=== PATIENT | female | born 1995 | race Two or more races ===

== ENCOUNTER 2020-12-15 13:40 | Outpatient (REF) | payer OTHER, SELFPAY ==
[2020-12-15 15:07] LABS: Influenza A PCR NEGATIVE (Negative); Influenza B PCR NEGATIVE (Negative); Resp Syncy Virus RNA Qual PCR NEGATIVE (Negative); SARS COV2 PCR INHOUSE NEGATIVE (Negative)
== END 2020-12-15 13:41 | disposition home or self-care (01) ==
LOC: HO.LNP 13:40
PROVIDERS: Visit Provider Family Medicine
DX: Z20.822 Contact with and (suspected) exposure to COVID-19 (principal)
CPT/HCPCS: 0241U

== ENCOUNTER 2021-01-11 07:32 | Outpatient (REF) | payer OTHER, SELFPAY ==
[2021-01-11 11:34] LABS: MANUAL DIFF FLAG NO
[2021-01-11 11:49] LABS: Basophils Percent Auto 0.6 % (0-2); Eosinophils Absolute Auto 0.1 X10*3/uL (0.0-0.4); Eosinophils Percent Auto 2.1 % (0-4); Hematocrit 39.6 % (37-47); Hemoglobin 13.5 g/dl (12.0-16.0); Imm Gran Abs Auto 0.01 X10*3/uL (0.00-0.03); Imm Gran Pct Auto 0.2 % (0.0-0.4); Lymphocytes Percent Auto 41.9 % (20-40); Mean Corpuscular HGB Conc 34.1 g/dl (31.0-35.0); Mean Corpuscular Hemoglobin 30.5 pg (27.0-33.0); Mean Corpuscular Volume 89.4 fL (80-98); Mean Platelet Volume 10.6 fL (9.4-12.3); Monocytes Absolute Auto 0.4 X10*3/uL (0.1-1.2); Monocytes Percent Auto 7.4 % (2-11); Neutrophils Absolute Auto 2.3 X10*3/uL (2.0-8.3); Neutrophils Percent Auto 47.8 % (45-73); Platelet Count 205 X10*3/uL (160-400); Red Blood Count 4.43 X10*6/uL (4.20-5.50); Red Cell Distribution Width 11.9 % (11.0-16.0); White Blood Count 4.9 X10*3/uL (4.8-10.8)
[2021-01-11 12:02] LABS: Alanine Aminotransferase 14 U/L (0-31); Albumin Level 4.2 g/dL (3.5-5.0); Alkaline Phosphatase 52 U/L (39-117); Anion Gap 11 (12-20); Aspartate Amino Transferase 16 U/L (5-31); Bilirubin Total 0.5 mg/dL (0.0-1.0); Blood Urea Nitrogen 9 mg/dL (9-16); Calcium 9.3 mg/dL (8.4-10.2); Carbon Dioxide 27 mmol/L (22-29); Chloride 108 mmol/L (96-108); Cholesterol 121 mg/dL; Estimated Glomerular Filt Rate > 60; Glucose Fasting 101 mg/dL (60-99); HDL Cholesterol 41 mg/dL; Iron 108 mcg/dL (30-160); LDL Cholesterol Calculated 64 mg/dl; Percent Iron Saturation 31 % (15-50); Potassium 4.7 mmol/L (3.3-5.1); Sodium 141 mmol/L (135-145); Total Iron Binding Capacity 344 mcg/dL (228-428); Total Protein 6.9 g/dL (6.5-8.0); Triglycerides 82 mg/dL; Unsaturated Iron Binding 236 ug/dL
[2021-01-11 12:24] LABS: TSH reflex Free T4 0.91 uIU/mL (0.32-4.0)
[2021-01-11 12:33] LABS: Erythrocyte Sedimentation Rate 2 MM/HR (0-20)
[2021-01-13 13:32] LABS: CRP High Sensitivity 0.5 mg/L
== END 2021-01-11 07:33 | disposition home or self-care (01) ==
LOC: HO.WFDLDS 07:32
PROVIDERS: Visit Provider Family Medicine
DX: Z00.00 Encounter for general adult medical examination without abnormal findings (principal); R06.02 Shortness of breath; R25.2 Cramp and spasm; M25.569 Pain in unspecified knee
CPT/HCPCS: 36415; 80053; 80061; 83540; 84443; 85025; 85652; 86141

== ENCOUNTER 2021-02-07 14:55 | Outpatient (REF) | payer OTHER, SELFPAY ==
[2021-02-09 09:04] LABS: BV Int Neg Control Negative (Negative); BV Int Pos Control Positive (Positive)
[2021-02-09 11:14] LABS: CT PCR NOT DETECTED (Not Detect.); NG PCR NOT DETECTED (Not Detect.)
== END 2021-02-07 14:56 | disposition home or self-care (01) ==
LOC: HO.LAB 14:55
PROVIDERS: Visit Provider Advanced Practice Midwife
DX: Z01.419 Encounter for gynecological examination (general) (routine) without abnormal findings (principal); Z11.3 Encounter for screening for infections with a predominantly sexual mode of transmission; C53.9 Malignant neoplasm of cervix uteri, unspecified; Z20.2 Contact with and (suspected) exposure to infections with a predominantly sexual mode of transmission
CPT/HCPCS: 87480; 87491; 87510; 87591; 87660; 88142

== ENCOUNTER 2021-03-04 10:25 | Outpatient (REF) | payer OTHER, SELFPAY ==
[2021-03-04 15:23] LABS: Syphilis Screen Nonreactive (Nonreactive)
[2021-03-07 08:20] LABS: HIV AB/AG Nonreactive (Nonreactive); HIV Num 1 0.05 S/CO (0.00-0.99); Hepatitis B Surface Antigen Negative (Negative); ~HepC Num1 0.12 S/CO (0.00-0.79); ~Hepatitis C Antibody Nonreactive (Nonreactive)
== END 2021-03-04 10:26 | disposition home or self-care (01) ==
LOC: HO.WFDLDS 10:25
PROVIDERS: Visit Provider Advanced Practice Midwife
DX: Z01.84 Encounter for antibody response examination (principal); Z11.4 Encounter for screening for human immunodeficiency virus [HIV]; Z20.2 Contact with and (suspected) exposure to infections with a predominantly sexual mode of transmission
CPT/HCPCS: 36415; 86780; 86803; 87340; 87389

== ENCOUNTER 2021-04-12 07:03 | Outpatient (REF) | payer OTHER, SELFPAY ==
[2021-04-12 12:38] LABS: HBS Num1 2.09 mIU/mL (0-7.99); HBc Num1 0.09 S/CO (0.00-0.79); HIV AB/AG Nonreactive (Nonreactive); HIV Num 1 0.05 S/CO (0.00-0.99); Hepatitis B Core Antibody Nonreactive (Nonreactive); ~HepC Num1 0.19 S/CO (0.00-0.79); ~Hepatitis B Surface Antibody NONREACTIVE (Nonreactive); ~Hepatitis C Antibody Nonreactive (Nonreactive)
[2021-04-12 12:39] LABS: HBsAGNum1 0.22 S/CO (0.00-0.99); Hepatitis B Surface Antigen Negative (Negative)
[2021-04-13 03:40] LABS: Syphilis Screen Nonreactive (Nonreactive)
[2021-04-14 08:31] LABS: Herpes Simplex Type 1 IgG <0.90 index; Herpes Simplex Type 2 IgG <0.90 index
== END 2021-04-12 07:04 | disposition home or self-care (01) ==
LOC: HO.WFDLDS 07:03
PROVIDERS: Visit Provider Family Medicine
DX: Z01.84 Encounter for antibody response examination (principal); Z11.4 Encounter for screening for human immunodeficiency virus [HIV]
CPT/HCPCS: 36415; 86695; 86696; 86704; 86706; 86780; 86803; 87340; 87389

== ENCOUNTER 2021-04-13 15:55 | Outpatient (REF) | payer OTHER, SELFPAY ==
[2021-04-14 05:22] LABS: CT PCR NOT DETECTED (Not Detect.); NG PCR NOT DETECTED (Not Detect.)
== END 2021-04-13 15:56 | disposition home or self-care (01) ==
LOC: HO.LAB 15:55
PROVIDERS: PCP Family Medicine; Visit Provider Family Medicine
DX: Z11.3 Encounter for screening for infections with a predominantly sexual mode of transmission (principal)
CPT/HCPCS: 87491; 87591

== ENCOUNTER 2022-03-27 15:54 | Outpatient (REF) | payer OTHER, SELFPAY ==
[2022-03-28 14:15] LABS: CT PCR NOT DETECTED (Not Detect.); NG PCR NOT DETECTED (Not Detect.)
[2022-03-29 11:16] LABS: BV Int Neg Control Negative (Negative); BV Int Pos Control Positive (Positive)
== END 2022-03-27 15:55 | disposition home or self-care (01) ==
LOC: HO.LNP 15:54
PROVIDERS: Visit Provider Advanced Practice Midwife
DX: Z01.419 Encounter for gynecological examination (general) (routine) without abnormal findings (principal); Z11.3 Encounter for screening for infections with a predominantly sexual mode of transmission
CPT/HCPCS: 87480; 87491; 87510; 87591; 87660

== ENCOUNTER → 2022-07-27 14:49 | Outpatient (BNVA) | payer OTHER, SELFPAY | PROVIDERS: PCP Family Medicine; Visit Provider Advanced Practice Midwife | DX: Z13.89 Encounter for screening for other disorder (principal) ==

== ENCOUNTER 2022-10-13 12:26 | Outpatient (REF) | payer OTHER, SELFPAY ==
[2022-10-13 13:57] LABS: TSH reflex Free T4 1.14 uIU/mL (0.32-4.0)
== END 2022-10-13 12:27 | disposition home or self-care (01) ==
LOC: HO.LAB 12:26
PROVIDERS: PCP Family Medicine; Visit Provider Physician Assistant
DX: R00.2 Palpitations (principal)
CPT/HCPCS: 36415; 84443

== ENCOUNTER 2023-02-05 16:27 | Emergency (ER) | payer OTHER, SELFPAY ==
--- NOTE | ~2023-02-05 | US_ITS ---
EXAMINATION: US OBSTETRICAL ULTRASOUND CLINICAL INFORMATION: Vaginal bleeding, 14 weeks COMPARISON: None available. LMP: 10/28/2022. Gestational age by maternal dates is 14 weeks 2 days. Estimated date of delivery by maternal dates is 08/04/2023. TECHNIQUE: Both transabdominal and endovaginal scanning was performed. FINDINGS: There is a single intrauterine gestational sac with embryo/fetus, and cardiac activity. There is no significant subchorionic hemorrhage or hematoma. The placenta is located posteriorly and appears normal without evidence of placenta previa. The cervix is 2.5 cm in length and is closed. HR: 156 beats per minute. CRL (crown rump length): 7.95 cm (14 weeks 3 days +/- 4 days). KAREN (estimated date of delivery): 08/03/2023 +/- 4 days. MATERNAL ADNEXA: The right maternal ovary measures 3.4 x 3.3 x 1.9 cm. The left maternal ovary measures 2.3 x 2.1 x 1.2 cm. There is no significant maternal adnexal mass. No maternal pelvic ascites. US/US OB pelvic and transvaginal IMPRESSION: 1. Single intrauterine gestation with ultrasound gestational age of 14 weeks 3 days +/- 4 days. 2. Estimated date of delivery is 08/03/2023 +/- 4 days. 3. No maternal adnexal mass or pelvic ascites. 4. Cause for the patient's vaginal bleeding is not seen.
[2023-02-05 16:51] VITALS: BP 114/68; PULSE 78; RESP 16; TEMP 36.5; O2SAT 100; BMI 30.1
--- NOTE | 2023-02-05 16:54 | ED.GENADULT ---
HPI - General Adult General Chief complaint: Vaginal Bleeding Stated complaint: , vaginal bleeding Time Seen by Provider: 02/05/23 21:41 Source: patient Mode of arrival: ambulatory Limitations: no limitations History of Present Illness HPI narrative: Patient primary 14 weeks notice bright red blood while wiping, also noticed small amount of clot felt mild cramps yesterday no urine symptoms no nausea no vomiting so far was uneventful Related Data Allergies Allergy/AdvReac Type Severity Reaction Status Date / Time aspirin Allergy red spot Verified 10/12/22 15:23 all over Review of Systems Review of Systems: Yes all other systems are reviewed and are negative [facility] Past Medical History Medical History Congenital single kidney Surgical History No pertinent past surgical history Family History Family History Paternal Uncle Mental health disorder Mother No problems noted. Father Prediabetes Social History Social History Housing: Apartment Alcohol intake: former Patient Tobacco Use Status: Never used Tobacco Smoked in Last 30 Days: No Use of substances other than those prescribed or required for medical reasons: No Advance Directives: No Advance Directives Information Provided: No Patient : Yes Current occupational status: employed Sexual orientation: Straight/Heterosexual Gender identity: Female Physical Exam ED Vital Signs: Vital Signs - 24 hr 02/05/23 16:51 02/05/23 19:36 02/05/23 19:36 Temperature 97.7 F 97.8 F 97.8 F Pulse Rate 78 80 80 Respiratory Rate 16 20 20 Blood Pressure 114/68 112/71 112/71 Pulse Oximetry 100 100 100 Oxygen Delivery Method Room Air Room Air Room Air 02/05/23 21:52 Temperature 98.3 F Pulse Rate 90 Respiratory Rate 18 Blood Pressure 112/78 Pulse Oximetry 100 Oxygen Delivery Method Room Air BMI result Body Mass Index 30.1 Appearance: Alert. Oriented X3. No acute distress. ENT: Pharynx normal. Oral Mucosa moist Neck: Normal inspection. Neck supple. CVS: Normal heart rate and rhythm. Pulses normal. Respiratory: No respiratory distress. Equal air entry bilateral, no wheezing/rales/rhonchi Abdomen: Soft and nontender. Bowel sounds are present, no mass palpable, no CVA tenderness Skin: Skin warm and dry. Normal skin color. Normal skin turgor. Extremities: No lower extremity edema. No calf tenderness Neuro: Oriented X 3. Course Course Course Narrative: RME: 28 yold female presents to the ED for vaginal bleeding ( spotting) since yesterday. patient is 14 weeks . Patient states states yesterday mild abdominal cramping. this is patient's first pregnacny. labs and US ordered Medical Decision Making Medical Decision Making [facility] Narrative: Patient with minor vaginal bleed no active bleeding at this time ultrasound showed IUP 14 weeks without any significant bleed Differential Diagnosis Differential Diagnoses: The differential diagnosis associated with the presentation includes Threatened /UTI Lab Data [facility] Lab Attestation statement: I reviewed the patient's lab results. 02/05/23 17:17 02/05/23 17:17 Labs: Lab Results 02/05/23 02/05/23 Range/Units 17:17 18:40 WBC 8.7 (4.8-10.8) X10*3/uL RBC 3.94 L (4.20-5.50) X10*6/uL Hgb 12.1 (12.0-16.0) g/dl Hct 33.7 L (37.0-47.0) % MCV 85.5 (80.0-98.0) fL MCH 30.7 (27.0-33.0) pg MCHC 35.9 H (31.0-35.0) g/dl RDW 12.6 (11.0-16.0) % Plt Count 196 (160-400) X10*3/uL MPV 9.6 (9.4-12.3) fL Immature Gran % (Auto) 0.3 (0.0-0.4) % Neut % (Auto) 74.2 H (45-73) % Lymph % (Auto) 18.8 L (20-40) % [place] % (Auto) 5.7 (2-11) % Eos % (Auto) 0.8 (0-4) % Baso % (Auto) 0.2 (0-2) % Lymph # (Auto) 1.6 (1.2-4.9) X10*3/uL [place] # (Auto) 0.5 (0.1-1.2) X10*3/uL Eos # (Auto) 0.1 (0.0-0.4) X10*3/uL Baso # (Auto) 0.0 (0.0-0.2) X10*3/uL Abs Immat Gran (auto) 0.03 (0.00-0.03) X10*3/uL Absolute Neuts (auto) 6.4 (2.0-8.3) x10*3/uL Absolute Nucleated RBC 0.000 (0.0-0.012) X10*3/uL Nucleated RBC % (auto) 0.0 (0.0-0.2) /100WBC PT 11.1 (11.1-13.3) SEC INR 0.9 (0.9-1.1) APTT 30.3 (26.0-36.4) SEC Sodium 137 (135-145) mmol/L Potassium 4.3 (3.3-5.1) mmol/L Chloride 106 (96-108) mmol/L Carbon Dioxide 20 L (22-29) mmol/L Anion Gap 15 (12-20) BUN 10 (9-16) mg/dL Creatinine 0.58 (0.5-1.4) mg/dL Estim Creat Clear Calc 143.3 Estimated GFR > 60 Random Glucose 80 (60-115) mg/dL Calcium 9.8 (8.4-10.2) mg/dL Total Bilirubin 0.2 (0.0-1.0) mg/dL AST 24 (5-31) U/L ALT 40 H (0-31) U/L Alkaline Phosphatase 39 (39-117) U/L Total Protein 7.4 (6.5-8.0) g/dL Albumin 4.2 (3.5-5.0) g/dL Beta HCG, Quant 65987 mIU/mL Urine Color Yellow Urine Appearance Clear Urine pH 6.5 (5.0-9.0) Ur Specific [place] 1.015 (1.005-1.025) Urine Protein Negative (Neg-Trace) mg/dL Urine Glucose (UA) Negative (Negative) mg/dL Urine Ketones 40 (Negative) mg/dL Urine Blood Large (3+) H (Negative) Urine Nitrite Negative (Negative) Ur Leukocyte Esterase Negative (Negative) Urine RBC 0-2 (0-2) /HPF Urine WBC 0-5 (0-5) /HPF Ur Squamous Epith Cells 0-2 (0-2) /HPF Urine Bacteria None Seen (None Seen) Hyaline Casts 0-2 (0-2) /LPF Urine Test POSITIVE H (NEGATIVE) Blood Type A Positive Radiology Impression Discussion of test interpretation with radiology: I have reviewed the radiologist's reading. Radiologist Impression: [address] [address] Ultrasound Report Signed Patient: Frieda Miguel MR#: [id number] : 1995 Acct:[id number] Age/Sex: 28 / F ADM Date: 02/05/23 Loc: .ED Attending Dr: Ordering Physician: Thomas Wyatt Date of Service: 02/05/23 Procedure(s): US OB pelvic and transvaginal Accession Number(s): [id number] cc: Thomas Wyatt; Yaya Myles MD~ EXAMINATION: US OBSTETRICAL ULTRASOUND CLINICAL INFORMATION: Vaginal bleeding, 14 weeks COMPARISON: None available. LMP: 10/28/2022. Gestational age by maternal dates is 14 weeks 2 days. Estimated date of delivery by maternal dates is 08/04/2023. TECHNIQUE: Both transabdominal and endovaginal scanning was performed. FINDINGS: There is a single intrauterine gestational sac with embryo/fetus, and cardiac activity. There is no significant subchorionic hemorrhage or hematoma. The placenta is located posteriorly and appears normal without evidence of placenta previa. The cervix is 2.5 cm in length and is closed. HR: 156 beats per minute. CRL (crown rump length): 7.95 cm (14 weeks 3 days +/- 4 days). KAREN (estimated date of delivery): 08/03/2023 +/- 4 days. MATERNAL ADNEXA: The right maternal ovary measures 3.4 x 3.3 x 1.9 cm. The left maternal ovary measures 2.3 x 2.1 x 1.2 cm. There is no significant maternal adnexal mass. No maternal pelvic ascites. US/US OB pelvic and transvaginal IMPRESSION: 1. Single intrauterine gestation with ultrasound gestational age of 14 weeks 3 days +/- 4 days. 2. Estimated date of delivery is 08/03/2023 +/- 4 days. 3. No maternal adnexal mass or pelvic ascites. 4. Cause for the patient's vaginal bleeding is not seen. Discharge Plan Discharge Clinical Impression: Threatened , Vaginal bleeding Patient Disposition: Home, Self-Care Instructions: Threatened Miscarriage (ED) Additional Instructions: Rest as advised Report to ER/your OBG if increased vaginal bleeding Interventions: ED Discharge Assessment Last Done: 02/05/23 22:01 Discharge Date/Time: 02/05/23 22:03
[2023-02-05 17:20] LABS: MANUAL DIFF FLAG NO
[2023-02-05 17:22] LABS: Basophils Percent Auto 0.2 % (0-2); Eosinophils Absolute Auto 0.1 X10*3/uL (0.0-0.4); Eosinophils Percent Auto 0.8 % (0-4); Hematocrit 33.7 % (37.0-47.0); Hemoglobin 12.1 g/dl (12.0-16.0); Imm Gran Abs Auto 0.03 X10*3/uL (0.00-0.03); Imm Gran Pct Auto 0.3 % (0.0-0.4); Lymphocytes Absolute Auto 1.6 X10*3/uL (1.2-4.9); Lymphocytes Percent Auto 18.8 % (20-40); Mean Corpuscular HGB Conc 35.9 g/dl (31.0-35.0); Mean Corpuscular Hemoglobin 30.7 pg (27.0-33.0); Mean Corpuscular Volume 85.5 fL (80.0-98.0); Mean Platelet Volume 9.6 fL (9.4-12.3); Monocytes Absolute Auto 0.5 X10*3/uL (0.1-1.2); Monocytes Percent Auto 5.7 % (2-11); Neutrophils Absolute Auto 6.4 x10*3/uL (2.0-8.3); Neutrophils Percent Auto 74.2 % (45-73); Platelet Count 196 X10*3/uL (160-400); Red Blood Count 3.94 X10*6/uL (4.20-5.50); Red Cell Distribution Width 12.6 % (11.0-16.0); White Blood Count 8.7 X10*3/uL (4.8-10.8)
[2023-02-05 17:39] LABS: INTERNATIONAL NORM RATIO 0.9 (0.9-1.1); Prothrombin Time 11.1 SEC (11.1-13.3)
[2023-02-05 17:42] LABS: Partial Thromboplastin Time 30.3 SEC (26.0-36.4)
[2023-02-05 17:45] LABS: Alanine Aminotransferase 40 U/L (0-31); Albumin Level 4.2 g/dL (3.5-5.0); Alkaline Phosphatase 39 U/L (39-117); Anion Gap 15 (12-20); Aspartate Amino Transferase 24 U/L (5-31); Bilirubin Total 0.2 mg/dL (0.0-1.0); Blood Urea Nitrogen 10 mg/dL (9-16); Calcium 9.8 mg/dL (8.4-10.2); Carbon Dioxide 20 mmol/L (22-29); Chloride 106 mmol/L (96-108); Creatinine Clr Calc Pharmacy 143.3; Estimated Glomerular Filt Rate > 60; Glucose Random 80 mg/dL (60-115); Potassium 4.3 mmol/L (3.3-5.1); Sodium 137 mmol/L (135-145); Total Protein 7.4 g/dL (6.5-8.0)
[2023-02-05 18:13] LABS: HCG Quantitative 29738 mIU/mL
[2023-02-05 18:57] LABS: Appearance Urine Clear; Color Urine Yellow; Glucose Urine UA Negative (Negative); Leukocyte Esterase Urine Negative (Negative); Nitrite Urine Negative (Negative); PH 6.5 (5.0-9.0); Specific Gravity - Urine 1.015 (1.005-1.025); UMIC TRIGGER UACC YES; Urine Blood Large (3+) (Negative); Urine Ketones 40 mg/dL (Negative); Urine Protein Negative (Neg-Trace)
[2023-02-05 18:58] LABS: UPreg QC Valid YES; Urine Pregnancy POSITIVE (NEGATIVE)
[2023-02-05 19:16] LABS: Bacteria Urine None Seen (None Seen); Hyaline Casts Urine 0-2 /LPF (0-2); RBC Urine 0-2 /HPF (0-2); Squamous Epithelial Cell Urine 0-2 /HPF (0-2); WBC Urine 0-5 /HPF (0-5)
[2023-02-05 19:36] VITALS: BP 112/71; PULSE 80; RESP 20; TEMP 36.6; O2SAT 100
[2023-02-05 21:52] VITALS: BP 112/78; PULSE 90; RESP 18; TEMP 36.8; O2SAT 100
--- NOTE | 2023-02-05 21:57 | PC.NURSE ---
this rn assumed care. pt a&ox3. respirations even and unlabored. pt reports 4 hours ago waking up from a nap and wiping after urinating and noticing bright red blood on toilet paper. pt reports not needing to wear a pad and reports only noticing blood when urinating. pt reports since being here in the ED she has not noticed any bleeding. pt reports being 14 weeks , takes all needed prenantal vitamins and reports this being her first . pt abdomen soft non tender to touch. pt denies any sexual intercourse, trauma or heavy lifting prior to vaginal bleeding. pt denies pain, SOB and chest pain. provider at bedside discussing pt care.
== END 2023-02-05 22:03 | disposition home or self-care (01) ==
PROVIDERS: Physician Assistant; Emergency Provider Internal Medicine; PCP Family Medicine
DX: O20.9 Hemorrhage in early pregnancy, unspecified (principal); Z3A.14 14 weeks gestation of pregnancy; Z79.899 Other long term (current) drug therapy
CPT/HCPCS: 36415; 76801; 76817; 80053; 81001; 81025; 84702; 85025; 85610; 85730; 86900; 86901; 99284

== ENCOUNTER 2023-07-04 12:38 | Outpatient (AMB) | payer OTHER, SELFPAY ==
--- NOTE | 2023-07-04 12:39 | MHC.PC.OV ---
Vital Signs 07/04/23 12:40 Height 5 ft 3 in Weight 192 lb BMI 34.0 BP 102/64 Blood Pressure Location Lt brachial Position Sitting Pulse 100 Pulse Source Pulse Oximeter Pulse Oximetry (%) 98 Oxygen Delivery Method Room Air Intake Visit Reasons: ? Sinus infection Intake Note: pt states sinus pressure and pain on rt side of face, started yesterday. 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 These sx have resolved w/ exception of pain and pressure in right side of face had one episode of dizziness yesterday Currently 35 weeks preg Using APAP w/ some relief PFSH Medical History Congenital single kidney Surgical History No pertinent past surgical history Family History Paternal Uncle Mental health disorder Mother No problems noted. Father Prediabetes Social History Housing: Apartment Alcohol intake: former Patient Tobacco Use Status: Never used Tobacco Current occupational status: employed Sexual orientation: Straight/Heterosexual Gender identity: Female Cognitive needs: No Hearing needs: No Vision needs: No Female Reproductive History Menstrual Age of Menarche: 10 Questionnaire Thrive Questionnaire Date Thrive assessed: 02/28/21 AUDIT C Alcohol Use Questionnaire (AUDIT-C) 1. How often do you have a drink containing alcohol?: Monthly or less 2. How many drinks containing alcohol do you have on a typical day when you are drinking?: 1 or 2 3. How often do you have six or more drinks on one occasion?: Never Total Score: 1 Score Reviewed/Action Taken: No Review of Systems Const All systems reviewed & are unremarkable except as noted in HPI and below Physical exam (Primary Care) Vital Signs: Last Vital Signs Pulse 100 07/04/23 12:40 BP 102/64 07/04/23 12:40 Pulse Ox 98 07/04/23 12:40 Oxygen Delivery Method Room Air 07/04/23 12:40 BMI result Body Mass Index 34.0 Tobacco/Smoking Status: Tobacco use Status Tobacco use date assessed 07/04/23 07/04/23 12:41 Patient Tobacco Use Status Never used Tobacco 07/04/23 12:41 Thrive Assessment: Date of Thrive Assessment Date Thrive assessed 02/28/21 07/04/23 12:41 Const Other: Awake alert NAD Sclera and conjunctiva clear bilat TM intact and clear bilat Nares with scant mucoid d/c in L nares, turbinates pale and edematous, maxillary sinus tenderness w/ palp on R MMM, pharynx + PND RRR LS CTAB Assessment and Plan Assessment & Plan (1) Acute bacterial sinusitis: Code(s): J01.90 - Acute sinusitis, unspecified; B96.89 - Other specified bacterial agents as the cause of diseases classified elsewhere Medications: New amoxicillin-pot clavulanate 875-125 mg 1 tab PO BID 7 days 14 tabs 0RF Coding Level of Care Code Est Pt Level 3 (57155) Diagnoses Acute bacterial sinusitis J01.90; B96.89
[2023-07-04 12:40] VITALS: BP 102/64; PULSE 100; O2SAT 98; BMI 34.0
== END 2023-07-04 13:00 | disposition home or self-care (01) ==
PROVIDERS: PCP Family Medicine; Visit Provider Nurse Practitioner Family
DX: J01.90 Acute sinusitis, unspecified (principal); B96.89 Other specified bacterial agents as the cause of diseases classified elsewhere
CPT/HCPCS: 99213